=== PATIENT | male | born 1955 | race Hispanic/Latino ===

== ENCOUNTER 2017-08-15 04:19 | Emergency (ER) | payer OTHER, SELFPAY ==
[2017-08-15] MEDS ORDERED: CLOPIDOGREL 75 MG TABLET ONE (04:40)
[2017-08-15] MEDS ORDERED: HEPARIN/D5W 25,000 UNIT/500 ML BAG IV ONE (04:40)
[2017-08-15] MEDS ORDERED: HEPARIN 5000 UNIT/ML 1 ML VIAL ONE (04:40)
[2017-08-15 04:48] LABS: Absolute Monocytes 0.5 K/uL (0.1-1.3); Absolute Neutrophil 3.5 K/uL (1.8-8.0); Basophils % 0.7 % (0-1.3); Eosinophils % 2.7 % (0-4.4); Hematocrit 40.6 % (39.6-49.0); Lymphocytes % 40.9 % (15.3-44.8); MCH 31.4 pg (27.0-35.0); MCV 95.4 fL (80-100); MPV 9.7 fL (7.6-11.3); Monocytes % 6.6 % (3.3-12.3); RBC Red Blood Cell Count 4.26 M/uL (4.33-5.43)
[2017-08-15] MEDS ORDERED: TENECTEPLASE 50 MG/10 ML VIAL IV ONE (04:50)
[2017-08-15 04:56] LABS: Protime INR 0.93
[2017-08-15] MEDS ORDERED: MORPHINE 4 MG/ML SYR ONE (04:58)
--- NOTE | 2017-08-15 04:58 | EDPHYS ---
Physician Documentation [facility] Name: Hawk Penny Age: 62 yrs Sex: Male : 1955 Arrival Date: 08/15/2017 Time: 04:20 Bed 4 Private MD: ED Physician Joe Martinez HPI: 08/15 04:35 This 62 yrs old Male presents to ER via EMS with complaints of Chest Pain. pkl 04:35 The patient or guardian reports chest pain that is located primarily in the substernal pkl area. Onset: just prior to arrival, 5 hour(s) ago. The pain does not radiate. Associated signs and symptoms: Pertinent positives: diaphoresis. The chest pain is described as a pressure. Historical: - Allergies: 04:28 No Known Allergies; fc - Home Meds: 04:28 None [Active]; fc - PMHx: 04:28 None; fc - PSHx: 04:28 None; fc - Immunization history:: Last tetanus immunization: unknown. - Social history:: Smoking status: Patient/guardian denies using tobacco. ROS: 04:35 Eyes: Negative for injury, pain, redness, and discharge, ENT: Negative for injury, pkl pain, and discharge, Neck: Negative for injury, pain, and swelling. 04:35 Cardiovascular: Positive for chest pain. 04:35 Respiratory: Negative for cough, shortness of breath. 04:35 Abdomen/GI: Negative for abdominal pain, nausea, vomiting, and diarrhea. 04:35 Back: Negative for acute changes. 04:35 : Negative for urinary symptoms. 04:35 MS/extremity: Negative for acute changes. 04:35 Skin: Positive for diaphoresis. 04:35 Neuro: Negative for altered mental status. Exam: 04:35 Head/Face: Normocephalic, atraumatic. Eyes: Pupils equal round and reactive to light, pkl extra-ocular motions intact. Lids and lashes normal. Conjunctiva and sclera are non-icteric and not injected. Cornea within normal limits. Periorbital areas with no swelling, redness, or edema. ENT: Nares patent. No nasal discharge, no septal abnormalities noted. Tympanic membranes are normal and external auditory canals are clear. Oropharynx with no redness, swelling, or masses, exudates, or evidence of obstruction, uvula midline. Mucous membranes moist. Neck: Trachea midline, no thyromegaly or masses palpated, and no cervical lymphadenopathy. Supple, full range of motion without nuchal rigidity, or vertebral point tenderness. No Meningismus. Chest/axilla: Normal chest wall appearance and motion. Nontender with no deformity. No lesions are appreciated. Cardiovascular: Regular rate and rhythm with a normal S1 and S2. No gallops, murmurs, or rubs. Normal PMI, no JVD. No pulse deficits. Respiratory: Lungs have equal breath sounds bilaterally, clear to auscultation and percussion. No rales, rhonchi or wheezes noted. No increased work of breathing, no retractions or nasal flaring. Abdomen/GI: Soft, non-tender, with normal bowel sounds. No distension or tympany. No guarding or rebound. No evidence of tenderness throughout. Back: No spinal tenderness. No costovertebral tenderness. Full range of motion. Skin: Warm, dry with normal turgor. Normal color with no rashes, no lesions, and no evidence of cellulitis. MS/ Extremity: Pulses equal, no cyanosis. Neurovascular intact. Full, normal range of motion. Neuro: Awake and alert, GCS 15, oriented to person, place, time, and situation. Cranial nerves II-XII grossly intact. Motor strength 5/5 in all extremities. Sensory grossly intact. Cerebellar exam normal. Normal gait. Vital Signs: 04:13 BP 148 / 108; Pulse 95; Resp 18; Temp 97.6(TE); Pulse Ox 100% on R/A; Weight 97.52 kg fc (R); Height 5 ft. 7 in. (170.18 cm) (R); Pain 2/10; 04:30 BP 163 / 108 LA Sitting (auto/reg); Pulse 74; Resp 20 S; Pulse Ox 100% on 2 lpm NC; bs1 04:55 BP 141 / 109 LA Supine (auto/reg); Pulse 75 LA; Resp 13 S; Temp 97.8(T); Pulse Ox 96% bs1 on 2 lpm NC; 05:06 BP 145 / 102; Pulse 74; Resp 20; Pulse Ox 94% on 2 lpm NC; Pain 5/10; fc 04:13 Body Mass Index 33.67 (97.52 kg, 170.18 cm) MDM: 04:29 Patient medically screened. pkl 04:52 Data reviewed: vital signs, nurses notes, lab test result(s), EKG, radiologic studies, pkl plain films. 04:52 ED course: Talked to Dr. Gaona ( Wool Hat Sanding Machine Operator at [facility] ). To initiate TNK and pkl Transfer to Cath. Lab at [facility]. 08/15 04:30 Order name: Basic Metabolic Panel; Complete Time: 06: 08/15 04:30 Order name: BNP; Complete Time: 06: 08/15 04:30 Order name: CBC with Diff; Complete Time: 04:59 08/15 04:30 Order name: Ckmb; Complete Time: 06: 08/15 04:30 Order name: CPK; Complete Time: 06: 08/15 04:30 Order name: LFT's; Complete Time: 06: 08/15 04:30 Order name: Magnesium; Complete Time: 06: 08/15 04:30 Order name: PT-INR; Complete Time: 04:59 08/15 04:30 Order name: Ptt, Activated; Complete Time: 04:59 08/15 04:30 Order name: Troponin (emerg Dept Use Only); Complete Time: 06: 08/15 04:30 Order name: XRAY Chest (1 view) 08/15 04:30 Order name: EKG; Complete Time: 04:30 08/15 04:30 Order name: Cardiac monitoring; Complete Time: 04:31 08/15 04:30 Order name: EKG - Nurse/Tech; Complete Time: 04:32 08/15 04:30 Order name: IV Saline Lock; Complete Time: 04: 08/15 04:30 Order name: Labs collected and sent; Complete Time: 04:41 08/15 04:30 Order name: O2 Per Protocol; Complete Time: 04: 08/15 04:30 Order name: O2 Sat Monitoring; Complete Time: 04: 08/15 05:42 Order name: EKG - Nurse/Tech; Complete Time: 05:42 08/15 05:42 Order name: EKG - Nurse/Tech; Complete Time: 05:42 08/15 05:42 Order name: EKG; Complete Time: 05:42 08/15 05:42 Order name: EKG; Complete Time: 05:42 Administered Medications: 04:41 Drug: NS 0.9% 1000 ml Route: IV; Rate: 125 ml/hr; Site: right antecubital; ak1 05:25 Follow up: IV Status: Infusion continued upon transfer bs1 04:41 Drug: PlaVIX 300 mg Route: PO; ak1 05:24 Follow up: Response: No adverse reaction bs1 04:47 Drug: Heparin ([place] Drip) 12 units/kg/hr - (HEParin 33491 units, D5W 500 ml) bs1 {Co-Signature: ricardo (Lakeisha Campuzano RN).} Route: IV; Rate: calculated rate; Site: left forearm; 05:25 Follow up: IV Status: Infusion continued upon transfer bs1 04:47 Drug: Heparin ([place]-Bolus No thrombolytic) - HEParin 60 units/kg {Co-Signature: ricardo bs1 (Lakeisha Campuzano RN).} Route: IVP; Site: left forearm; 05:24 Follow up: Response: No adverse reaction bs1 04:55 Drug: morphine 4 mg Route: IVP; Site: right antecubital; bb 05:24 Follow up: Response: No adverse reaction bs1 05:01 Drug: Tenecteplase 50 mg {Co-Signature: ricardo (Lakeisha Campuzano RN).} Route: IV; Rate: bs1 calculated rate; Site: right antecubital; 05:23 Follow up: IV Status: Infusion continued upon transfer bs1 05:25 Follow up: IV Status: Completed infusion bs1 05:15 CANCELLED (Other Intervention Used): Tenecteplase 45 mg IV at 50 calculated rate once bb Disposition: 04:52 Critical Care:. pkl Disposition: 08/15/17 04:58 Transfer ordered to [facility]. Diagnosis is Acute M.I. ( STEMI ). - Reason for transfer: Higher level of care. - Accepting physician is Dr. Gaona. - Condition is Stable. - Problem is new. - Symptoms have improved. Signatures: Dispatcher [employer] EDJoe Taylor MD MD pkLakeisha Elaine RN RN fc Ballard, Brenda, RN RN bb Gabby Kemp RN RN ak1 Zena Meléndez, RN RN bs1 Lakeisha Campuzano RN fc Corrections: (The following items were deleted from the chart) 05:15 05:14 Tenecteplase 45 mg IV at 50 calculated rate once ordered. slade june 05:46 04:58 08/15/2017 04:58 Transfer ordered to [facility]. Diagnosis is bs1 Acute M.I. ( STEMI ). Reason for transfer: Higher level of care. Accepting physician is Dr. Gaona. Condition is Stable. Problem is new. Symptoms have improved. pkl
--- NOTE | 2017-08-15 04:58 | ER ---
Nurse's Notes [facility] Name: Hawk Penny Age: 62 yrs Sex: Male : 1955 Arrival Date: 08/15/2017 Time: 04:20 Bed 4 Private MD: Diagnosis: Acute M.I. ( STEMI ) Presentation: 08/15 04:13 Presenting complaint: EMS states: that pt has been having chest pain since 2300 last night. Pt is also pale, diaphoretic and short of breath. 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 Transition of care: patient was not received from another setting of care. Onset of symptoms was August 14, 2017 at 23:00. Initial Sepsis Screen: Does the patient meet any 2 criteria? HR > 90 bpm. No. Patient's initial sepsis screen is negative. Does the patient have a suspected source of infection? No. Patient's initial sepsis screen is negative. Care prior to arrival: Medication(s) given: ASA, 81 mg, x 1, zofran 4 mg, Fentanyl 100 mcg ivp IV initiated. 18 GA, in the right antecubital area. 04:13 Method Of Arrival: EMS: [facility] 04:13 Acuity: KIP 2 Triage Assessment: 04:43 General: Appears in no apparent distress. Behavior is calm, cooperative. Pain: ak1 Complains of pain in chest. EENT: No signs and/or symptoms were reported regarding the EENT system. Neuro: Level of Consciousness is awake, alert, obeys commands. Historical: - Allergies: 04:28 No Known Allergies; fc - Home Meds: 04:28 None [Active]; fc - PMHx: 04:28 None; fc - PSHx: 04:28 None; fc - Immunization history:: Last tetanus immunization: unknown. - Social history:: Smoking status: Patient/guardian denies using tobacco. Screenin:13 Abuse screen: Denies threats or abuse. Nutritional screening: No deficits noted. Tuberculosis screening: No symptoms or risk factors identified. Fall Risk None identified. Assessment: 04:25 General: Appears uncomfortable, Behavior is calm, cooperative, appropriate for age. bs1 Pain: Complains of pain in chest Pain radiates to left side of chest, underneath breast area Pain began at 2300 last night 5-20-18. Neuro: Level of Consciousness is awake, alert, obeys commands, Oriented to person, place, time, situation, Appropriate for age Checker And Packer are equal bilaterally Moves all extremities. Gait is steady, Speech is normal, Facial symmetry appears normal, Pupils are PERRLA. Neuro: Denies blurred vision difficulty swallowing, numbness. Cardiovascular: Reports chest pain, shortness of breath, reports having chest pain that started about 4 hours ago, states he does not have pain at this time. Heart tones S1 S2 present Capillary refill < 3 seconds Patient's skin is warm and dry. Respiratory: Airway is patent Trachea midline Respiratory effort is even, unlabored, Respiratory pattern is regular, symmetrical. GI: No deficits noted. No signs and/or symptoms were reported involving the gastrointestinal system. : No deficits noted. No signs and/or symptoms were reported regarding the genitourinary system. EENT: No deficits noted. No signs and/or symptoms were reported regarding the EENT system. Derm: Skin is intact, Skin is pink, warm \T\ dry. Musculoskeletal: Circulation, motion, and sensation intact. Capillary refill < 3 seconds, Range of motion: intact in all extremities. 04:52 Reassessment: Patient reporting chest pain again, mild SOB. Dr Martinez at bedside. Order bs1 for 4mg Morphine and TNK. 05:00 Reassessment: Morphine given at 0455. TNK given at 0500. bs1 05:10 Reassessment: Patient is alert, oriented x 3, equal unlabored respirations, skin bs1 warm/dry/pink. Patient states that morphine helped ease the pain. Report given to [facility], patient transferred by ground EMS to [facility]. Patient states symptoms have improved. Vital Signs: 04:13 BP 148 / 108; Pulse 95; Resp 18; Temp 97.6(TE); Pulse Ox 100% on R/A; Weight 97.52 kg fc (R); Height 5 ft. 7 in. (170.18 cm) (R); Pain 05/07; 04:30 BP 163 / 108 LA Sitting (auto/reg); Pulse 74; Resp 20 S; Pulse Ox 100% on 2 lpm NC; bs1 04:55 BP 141 / 109 LA Supine (auto/reg); Pulse 75 LA; Resp 13 S; Temp 97.8(T); Pulse Ox 96% bs1 on 2 lpm NC; 05:06 BP 145 / 102; Pulse 74; Resp 20; Pulse Ox 94% on 2 lpm NC; Pain 5/10; fc 04:13 Body Mass Index 33.67 (97.52 kg, 170.18 cm) ED Course: 04:13 Arm band placed on Patient placed in an exam room, on a stretcher. fc 04:13 Patient has correct armband on for positive identification. Placed in gown. Bed in low fc position. Call light in reach. Side rails up X2. home care physical therapist on. Pulse ox on. NIBP on. 04:13 No provider procedures requiring assistance completed. Maintain EMS IV. Dressing fc intact. Good blood return noted. Site clean \T\ dry. Gauge \T\ site: 18 gauge to right a/c. 04:20 Patient arrived in ED. fc 04:26 Triage completed. fc 04:29 Joe Martinez MD is Attending Physician. pkl 04:43 Inserted saline lock: 18 gauge in left forearm, using aseptic technique. Oxygen ak1 administration via nasal cannula \T\ 2L/min. 04:46 X-ray completed. Portable x-ray completed in exam room. Patient tolerated procedure kw well. 04:51 XRAY Chest (1 view) In Process Unspecified. EDMS 05:06 Zena Meléndez, VON is Primary Nurse. bs1 05:29 Patient transferred, IV remains in place. intact. bs1 Administered Medications: 04:41 Drug: NS 0.9% 1000 ml Route: IV; Rate: 125 ml/hr; Site: right antecubital; ak1 05:25 Follow up: IV Status: Infusion continued upon transfer bs1 04:41 Drug: PlaVIX 300 mg Route: PO; ak1 05:24 Follow up: Response: No adverse reaction bs1 04:47 Drug: Heparin ([place] Drip) 12 units/kg/hr - (HEParin 42018 units, D5W 500 ml) bs1 {Co-Signature: ricardo (Lakeisha Campuzano RN).} Route: IV; Rate: calculated rate; Site: left forearm; 05:25 Follow up: IV Status: Infusion continued upon transfer bs1 04:47 Drug: Heparin (DC-Bolus No thrombolytic) - HEParin 60 units/kg {Co-Signature: bs1 (Lakeisha Campuzano RN).} Route: IVP; Site: left forearm; 05:24 Follow up: Response: No adverse reaction bs1 04:55 Drug: morphine 4 mg Route: IVP; Site: right antecubital; bb 05:24 Follow up: Response: No adverse reaction bs1 05:01 Drug: Tenecteplase 50 mg {Co-Signature: fc (Lakeisha Campuzano RN).} Route: IV; Rate: bs1 calculated rate; Site: right antecubital; 05:23 Follow up: IV Status: Infusion continued upon transfer bs1 05:25 Follow up: IV Status: Completed infusion bs1 05:15 CANCELLED (Other Intervention Used): Tenecteplase 45 mg IV at 50 calculated rate once bb Outcome: 04:58 ER care complete, transfer ordered by . pkmaday 05:15 Transferred by ground EMS to [facility], Transfer form completed. bs1 05:15 Condition: stable 05:15 Instructed on the need for transfer, Demonstrated understanding of instructions. 05:42 Transferred Note: report called to Mayank LONGORIA at the earth science laboratory technician at [facility] in [place]. 05:46 Patient left the ED. bs1 Signatures: Dispatcher [employer] EDMS Joe Martinez MD MD pkl Chretien, Felicia, RN RN fc Hina Donovan RN RN Leanne Mathew Amber RN RN ak1 Zena Meléndez RN RN bs1 Lakeisha Campuzano RN Corrections: (The following items were deleted from the chart) 05:09 04:56 Reassessment: Patient denies chest pain at this time. Denies any SOB, numbness or bs1 tingling. Heparin started at 20 cc/hr, patient tolerating well. bs1 05:11 04:25 Pain: Complains of pain in chest Pain radiates to left side of chest, underneath bs1 breast area Pain began 4 hours ago. bs1 05:12 04:52 Reassessment: Patient reporting chest pain again, mild SOB. bs1 bs1 05:29 04:52 Reassessment: Patient reporting chest pain again, mild SOB. Dr Martinez at bedside. bs1bs1 05:46 04:55 BP 141 / 109 Supine Auto L Arm Regular; Pulse 75bpm; Left ArmResp 13bpm; bs1 Spontaneous; Pulse Ox 96% 2 lpm Nasal Cannula; bs1
[2017-08-15 05:01] LABS: Potassium 3.5 mEq/L (3.6-5.0)
[2017-08-15 05:08] LABS: Albumin 3.8 g/dL (3.2-5.5); Bilirubin Direct 0.1 mg/dL (0-0.2); Bilirubin Total 0.4 mg/dL (0.3-1.2); Magnesium 1.9 mg/dL (1.8-2.5); Protein, Total 7.4 g/dL (6.0-8.3)
[2017-08-15 05:11] LABS: CKMB Creatine Kinase MB 5.1 ng/ml (0.3-4.0)
--- NOTE | 2017-08-15 07:57 | EKG ---
Test Date: 2017-08-15 Test Time: 05:02:37 Triage Assistant: NORMA MEASUREMENT RESULTS: Intervals: Rate: 70 AR: 134 QRSD: 92 QT: 410 QTc: 442 [place]: P: 16 AR: 134 QRS: -32 T: 4 INTERPRETIVE STATEMENTS: Normal sinus rhythm Left axis deviation ST elevation, consider anterolateral injury or acute infarct ACUTE [place] / STEMI Abnormal ECG Compared to ECG 08/15/2017 04:33:35 No significant changes Electronically Signed On 08-15-17 07:56:58 CDT by Hollis Kern
--- NOTE | 2017-08-15 07:57 | EKG ---
Test Date: 2017-08-15 Test Time: 04:18:58 Farmworker Animal: NORMA MEASUREMENT RESULTS: Intervals: Rate: 71 DC: 130 QRSD: 84 QT: 400 QTc: 434 [place]: P: 20 DC: 130 QRS: -27 T: 2 INTERPRETIVE STATEMENTS: Normal sinus rhythm ST elevation, consider lateral injury or acute infarct ACUTE [place] / STEMI Abnormal ECG No previous ECG available for comparison Electronically Signed On 08-15-17 07:57:19 CDT by Hollis Kern
--- NOTE | 2017-08-15 07:57 | EKG ---
Test Date: 2017-08-15 Test Time: 04:33:35 Memorial Counselor: NORMA MEASUREMENT RESULTS: Intervals: Rate: 66 LA: 132 QRSD: 86 QT: 404 QTc: 423 [place]: P: 12 LA: 132 QRS: -38 T: 0 INTERPRETIVE STATEMENTS: Normal sinus rhythm Left axis deviation ST elevation, consider lateral injury or acute infarct ACUTE [place] / STEMI Abnormal ECG Compared to ECG 08/15/2017 04:18:58 Left-axis deviation now present ST (T wave) deviation still present Myocardial infarct finding still present Electronically Signed On 08-15-17 07:57:15 CDT by Hollis Kern
--- NOTE | 2017-08-17 11:09 | RAD REPORT ---
EXAM DESCRIPTION: RAD - Chest Single View - 08/15/2017 4:51 am CLINICAL HISTORY: Chest pain. COMPARISON: None. FINDINGS: Portable technique limits examination quality. The lungs are grossly clear. The heart is normal in size. No displaced fractures. IMPRESSION: No acute intrathoracic process suspected.
== END 2017-08-15 05:46 | disposition short-term general hospital (02) ==
LOC: ER 04:19
DX: I21.3 ST elevation (STEMI) myocardial infarction of unspecified site (principal)
CPT/HCPCS: 36415; 71045; 80048; 80076; 82550; 82553; 83735; 83880; 84484; 85025; 85610; 85730; 92977; 93005; 99285; J1644; J3101

== ENCOUNTER 2021-04-26 14:12 | Observation (INO) | payer SELFPAY ==
--- OUTSIDE RECORDS SUMMARY | 2021-04-26 14:16 | XMS REPORT | Continuity of Care Document ---
:1955 Author Organization [facility] t Address [address] [place] [address] Care Team Providers Name Role Phone NAN BOWIE Attending Clinician Unavailable Triston BOWIE Admitting Clinician Unavailable Problems This patient has no known problems. Allergies, Adverse Reactions, Alerts This patient has no known allergies or adverse reactions. Medications This patient has no known medications. Procedures This patient has no known procedures. Results Test Description Test Time Test Comments Results Result Comments Source MAGNESIUM 2017-08-18 06:38:00 Test Item Value Reference Range Interpretation Comme nts MAGNESIUM (BEAKER) (test code = 627) 2.4 mg/dL 1.6-2.6 BASIC METABOLIC [id number] 06:38:00 Test Item Value Reference Range Interpretation Comments SODIUM (BEAKER) 138 meq/L 136-145 (test code = 381) POTASSIUM (BEAKER) 4.8 meq/L 3.5-5.1 (test code = 379) CHLORIDE (BEAKER) 105 meq/L 98-107 (test code = 382) CO2 (BEAKER) (test 26 meq/L 22-29 code = 355) BLOOD UREA NITROGEN 28 mg/dL 7-21 H (BEAKER) (test code = 354) CREATININE (BEAKER) 1.49 mg/dL 0.57-1.25 H (test code = 358) GLUCOSE RANDOM 122 mg/dL 70-105 H (BEAKER) (test code = 652) CALCIUM (BEAKER) 9.5 mg/dL 8.4-10.2 (test code = 697) EGFR (BEAKER) (test 48 mL/min/1.73 ESTIMA KATIE GFR IS code = 1092) sq m NOT ACCURATE CREATININE CLEARANCE IN PREDICTING GLOMERULAR FILTRATION RATE . ESTIMATED GFR I S NOT APPLICABLE FOR DIALYSIS QUIN TS. CBC W/PLT COUNT & AUTO [id number] 06:20:00 Test Item Value Reference Range Interpretation Comments WHITE BLOOD CELL COUNT (BEAKER) 8.9 K/ L 3.5-10.5 (test code = 775) RED BLOOD CELL COUNT (BEAKER) 4.16 M/ L 4.63-6.08 L (test code = 761) HEMOGLOBIN (BEAKER) (test code = 12.9 GM/DL 13.7-17.5 L 410) HEMATOCRIT (BEAKER) (test code = 40.0 % 40.1-51.0 L 411) MEAN CORPUSCULAR VOLUME (BEAKER) 96.2 fL 79.0-92.2 H (test code = 753) MEAN CORPUSCULAR HEMOGLOBIN 31.0 pg 25.7-32.2 (BEAKER) (test code = 751) MEAN CORPUSCULAR HEMOGLOBIN CONC 32.3 GM/DL 32.3-36.5 (BEAKER) (test code = 752) RED CELL DISTRIBUTION WIDTH 14.1 % 11.6-14.4 (BEAKER) (test code = 412) PLATELET COUNT (BEAKER) (test 146 K/CU MM 150-450 L code = 756) MEAN PLATELET VOLUME (BEAKER) 11.8 fL 9.4-12.4 (test code = 754) NUCLEATED RED BLOOD CELLS 0 /100 WBC 0-0 (BEAKER) (test code = 413) NEUTROPHILS RELATIVE PERCENT 70 % (BEAKER) (test code = 429) LYMPHOCYTES RELATIVE PERCENT 17 % (BEAKER) (test code = 430) MONOCYTES RELATIVE PERCENT 11 % (BEAKER) (test code = 431) EOSINOPHILS RELATIVE PERCENT 2 % (BEAKER) (test code = 432) BASOPHILS RELATIVE PERCENT 0 % (BEAKER) (test code = 437) NEUTROPHILS ABSOLUTE COUNT 6.21 K/ L 1.78-5.38 H (BEAKER) (test code = 670) LYMPHOCYTES ABSOLUTE COUNT 1.48 K/ L 1.32-3.57 (BEAKER) (test code = 414) MONOCYTES ABSOLUTE COUNT (BEAKER) 0.98 K/ L 0.30-0.82 H (test code = 415) EOSINOPHILS ABSOLUTE COUNT 0.14 K/ L 0.04-0.54 (BEAKER) (test code = 416) BASOPHILS ABSOLUTE COUNT (BEAKER) 0.04 K/ L 0.01-0.08 (test code = 417) IMMATURE GRANULOCYTES-RELATIVE 1 % 0-1 PERCENT (BEAKER) (test code = 2801) [id number] 05:54:00 Test Item Value Reference Range Interpretation Comments MAGNESIUM (BEAKER) (test code = 2.2 mg/dL 1.6-2.6 627) BASIC METABOLIC [id number] 05:54:00 Test Item Value Reference Range Interpretation Comments SODIUM (BEAKER) 136 meq/L 136-145 (test code = 381) POTASSIUM (BEAKER) 4.5 meq/L 3.5-5.1 (test code = 379) CHLORIDE (BEAKER) 100 meq/L 98-107 (test code = 382) CO2 (BEAKER) (test 27 meq/L 22-29 code = 355) BLOOD UREA NITROGEN 22 mg/dL 7-21 H (BEAKER) (test code = 354) CREATININE (BEAKER) 1.33 mg/dL 0.57-1.25 H (test code = 358) GLUCOSE RANDOM 123 mg/dL 70-105 H (BEAKER) (test code = 652) CALCIUM (BEAKER) 9.4 mg/dL 8.4-10.2 (test code = 697) EGFR (BEAKER) (test 55 mL/min/1.73 ESTIMA KATIE GFR IS code = 1092) sq m NOT ACCURATE CREATININE CLEARANCE IN PREDICTING GLOMERULAR FILTRATION RATE . ESTIMATED GFR I S NOT APPLICABLE FOR DIALYSIS PATIEN TS. CBC W/PLT COUNT & AUTO [id number] 05:26:00 Test Item Value Reference Range Interpretation Comments WHITE BLOOD CELL COUNT (BEAKER) 11.2 K/ L 3.5-10.5 H (test code = 775) RED BLOOD CELL COUNT (BEAKER) 4.33 M/ L 4.63-6.08 L (test code = 761) HEMOGLOBIN (BEAKER) (test code = 13.6 GM/DL 13.7-17.5 L 410) HEMATOCRIT (BEAKER) (test code = 41.9 % 40.1-51.0 411) MEAN CORPUSCULAR VOLUME (BEAKER) 96.8 fL 79.0-92.2 H (test code = 753) MEAN CORPUSCULAR HEMOGLOBIN 31.4 pg 25.7-32.2 (BEAKER) (test code = 751) MEAN CORPUSCULAR HEMOGLOBIN CONC 32.5 GM/DL 32.3-36.5 (BEAKER) (test code = 752) RED CELL DISTRIBUTION WIDTH 14.1 % 11.6-14.4 (BEAKER) (test code = 412) PLATELET COUNT (BEAKER) (test 150 K/CU MM 150-450 code = 756) MEAN PLATELET VOLUME (BEAKER) 11.7 fL 9.4-12.4 (test code = 754) NUCLEATED RED BLOOD CELLS 0 /100 WBC 0-0 (BEAKER) (test code = 413) NEUTROPHILS RELATIVE PERCENT 75 % (BEAKER) (test code = 429) LYMPHOCYTES RELATIVE PERCENT 14 % (BEAKER) (test code = 430) MONOCYTES RELATIVE PERCENT 10 % (BEAKER) (test code = 431) EOSINOPHILS RELATIVE PERCENT 0 % (BEAKER) (test code = 432) BASOPHILS RELATIVE PERCENT 0 % (BEAKER) (test code = 437) NEUTROPHILS ABSOLUTE COUNT 8.34 K/ L 1.78-5.38 H (BEAKER) (test code = 670) LYMPHOCYTES ABSOLUTE COUNT 1.59 K/ L 1.32-3.57 (BEAKER) (test code = 414) MONOCYTES ABSOLUTE COUNT (BEAKER) 1.12 K/ L 0.30-0.82 H (test code = 415) EOSINOPHILS ABSOLUTE COUNT 0.05 K/ L 0.04-0.54 (BEAKER) (test code = 416) BASOPHILS ABSOLUTE COUNT (BEAKER) 0.03 K/ L 0.01-0.08 (test code = 417) IMMATURE GRANULOCYTES-RELATIVE 1 % 0-1 PERCENT (BEAKER) (test code = 2801) HEMOGLOBIN [id number] 10:45:00 Test Item Value Reference Range Interpretation Comments HEMOGLOBIN A1C (BEAKER) (test code = 5.6 % 4.3-6.1 368) CBC W/PLT COUNT & AUTO [id number] 06:49:00 Test Item Value Reference Range Interpretation Comments WHITE BLOOD CELL COUNT (BEAKER) 12.6 K/ L 3.5-10.5 H (test code = 775) RED BLOOD CELL COUNT (BEAKER) 4.28 M/ L 4.63-6.08 L (test code = 761) HEMOGLOBIN (BEAKER) (test code = 13.6 GM/DL 13.7-17.5 L 410) HEMATOCRIT (BEAKER) (test code = 40.5 % 40.1-51.0 411) MEAN CORPUSCULAR VOLUME (BEAKER) 94.6 fL 79.0-92.2 H (test code = 753) MEAN CORPUSCULAR HEMOGLOBIN 31.8 pg 25.7-32.2 (BEAKER) (test code = 751) MEAN CORPUSCULAR HEMOGLOBIN CONC 33.6 GM/DL 32.3-36.5 (BEAKER) (test code = 752) RED CELL DISTRIBUTION WIDTH 14.0 % 11.6-14.4 (BEAKER) (test code = 412) PLATELET COUNT (BEAKER) (test 147 K/CU MM 150-450 L code = 756) MEAN PLATELET VOLUME (BEAKER) 11.1 fL 9.4-12.4 (test code = 754) NUCLEATED RED BLOOD CELLS 0 /100 WBC 0-0 (BEAKER) (test code = 413) NEUTROPHILS RELATIVE PERCENT 84 % (BEAKER) (test code = 429) LYMPHOCYTES RELATIVE PERCENT 8 % (BEAKER) (test code = 430) MONOCYTES RELATIVE PERCENT 7 % (BEAKER) (test code = 431) EOSINOPHILS RELATIVE PERCENT 0 % (BEAKER) (test code = 432) BASOPHILS RELATIVE PERCENT 0 % (BEAKER) (test code = 437) NEUTROPHILS ABSOLUTE COUNT 10.55 K/ L 1.78-5.38 H (BEAKER) (test code = 670) LYMPHOCYTES ABSOLUTE COUNT 0.99 K/ L 1.32-3.57 L (BEAKER) (test code = 414) MONOCYTES ABSOLUTE COUNT (BEAKER) 0.93 K/ L 0.30-0.82 H (test code = 415) EOSINOPHILS ABSOLUTE COUNT 0.02 K/ L 0.04-0.54 L (BEAKER) (test code = 416) BASOPHILS ABSOLUTE COUNT (BEAKER) 0.02 K/ L 0.01-0.08 (test code = 417) IMMATURE GRANULOCYTES-RELATIVE 1 % 0-1 PERCENT (BEAKER) (test code = 2806) [id number] 06:40:00 Test Item Value Reference Range Interpretation Comments MAGNESIUM (BEAKER) 2.2 mg/dL 1.6-2.6 Specimen slightly (test code = 627) hemolyzed BASIC METABOLIC [id number] 06:40:00 Test Item Value Reference Range Interpretation Comments SODIUM (BEAKER) 136 meq/L 136-145 (test code = 381) POTASSIUM (BEAKER) 3.7 meq/L 3.5-5.1 Specimen slightly (test code = 379) hemolyzed CHLORIDE (BEAKER) 102 meq/L 98-107 (test code = 382) CO2 (BEAKER) (test 26 meq/L 22-29 code = 355) BLOOD UREA NITROGEN 19 mg/dL 7-21 (BEAKER) (test code = 354) CREATININE (BEAKER) 1.12 mg/dL 0.57-1.25 Specimen slightly (test code = 358) hemolyzed GLUCOSE RANDOM 142 mg/dL 70-105 H (BEAKER) (test code = 652) CALCIUM (BEAKER) 8.9 mg/dL 8.4-10.2 (test code = 697) EGFR (BEAKER) (test 67 mL/min/1.73 ESTIMA KATIE GFR IS code = 1092) sq m NOT ACCURATE CREATININE CLEARANCE IN PREDICTING GLOMERULAR FILTRATION RATE . ESTIMATED GFR I S NOT APPLICABLE FOR DIALYSIS PATIEN TS. TROPONIN [id number] 09:59:00 Test Item Value Reference Range Interpretation Comments TROPONIN I (BEAKER) (test code = 397) > ng/mL 0.00-0.03 HH Troponin I (TnI) levels must be interpreted in the context of the presenting symptoms and the clinical findings. Elevated TnI levels indicate myocardial damage, but are not specific for ischemic heart disease. Elevated TnI levels are seen in patients with other cardiac conditions (including myocarditis and congestive heart failure), and slight TnI elevations occur in patients with other conditions, including sepsis, renal failure, acidosis, acute neurological disease, and persistent tachyarrhythmia.TSH/FREE T4 IF [id number] 09:19:00 Test Item Value Reference Range Interpretation Comments THYROID STIMULATING HORMONE 4.36 uIU/mL 0.35-4.94 (BEAKER) (test code = 772) B-TYPE NATRIURETIC FACTOR (BNP)2017-08-15 09:02:00 Test Item Value Reference Range Interpretation Comments B-TYPE NATRIURETIC PEPTIDE (BEAKER) 62 pg/mL 0-100 (test code = 700) [id number] 09:01:00 Test Item Value Reference Range Interpretation Comments PARTIAL THROMBOPLASTIN TIME > seconds 22.5-36.0 HH (BEAKER) (test code = 760) RAD, CHEST, 1 VIEW, NON [id number] 09:01:00Reason for exam:->chest painShould this be performed at the bedside?->YesFINAL REPORT Chest one view INDICATION: Chest pain COMPARISON: None available IMPRESSION: The cardiac silhouette is enlarged. There is pulmonary vascular congestion with diffuse interstitial and ground glass and early airspace opacities suggestive of pulmonary edema. Superimposed pneumonitis cannot be excluded, however. Trace pleural effusions may be present. The aorta is mildly ectatic/tortuous. No acute osseous abnormality or pneumothorax is seen. Signed: Ame Siddiqui MDReport Verified Date/Time: 08/15/2017 09:01:19 Reading Location: [facility] Radiology ReadingRoom HEPATIC FUNCTION [id number] 08:59:00 Test Item Value Reference Range Interpretation Comments TOTAL PROTEIN (BEAKER) (test code = 6.6 gm/dL 6.0-8.3 770) ALBUMIN (BEAKER) (test code = 1145) 3.6 g/dL 3.5-5.0 BILIRUBIN TOTAL (BEAKER) (test code 0.6 mg/dL 0.2-1.2 = 377) BILIRUBIN DIRECT (BEAKER) (test 0.3 mg/dL 0.1-0.5 code = 706) ALKALINE PHOSPHATASE (BEAKER) (test 91 U/L 40-150 code = 346) AST (SGOT) (BEAKER) (test code = 775 U/L 5-34 H 353) ALT (SGPT) (BEAKER) (test code = 149 U/L 6-55 H 347) [id number] 08:59:00 Test Item Value Reference Range Interpretation Comments PHOSPHORUS (BEAKER) (test code = 2.3 mg/dL 2.3-4.7 604) BASIC METABOLIC [id number] 08:59:00 Test Item Value Reference Range Interpretation Comments SODIUM (BEAKER) 137 meq/L 136-145 (test code = 381) POTASSIUM (BEAKER) 4.0 meq/L 3.5-5.1 (test code = 379) CHLORIDE (BEAKER) 105 meq/L 98-107 (test code = 382) CO2 (BEAKER) (test 25 meq/L 22-29 code = 355) BLOOD UREA NITROGEN 18 mg/dL 7-21 (BEAKER) (test code = 354) CREATININE (BEAKER) 1.22 mg/dL 0.57-1.25 (test code = 358) GLUCOSE RANDOM 140 mg/dL 70-105 H (BEAKER) (test code = 652) CALCIUM (BEAKER) 8.5 mg/dL 8.4-10.2 (test code = 697) EGFR (BEAKER) (test 60 mL/min/1.73 ESTIMA KATIE GFR IS code = 1092) sq m NOT ACCURATE CREATININE CLEARANCE IN PREDICTING GLOMERULAR FILTRATION RATE . ESTIMATED GFR I S NOT APPLICABLE FOR DIALYSIS PATIEN TS. LIPID [id number] 08:59:00 Test Item Value Reference Range Interpretation Comments TRIGLYCERIDES (BEAKER) (test code = 46 mg/dL 540) CHOLESTEROL (BEAKER) (test code = 149 mg/dL 631) HDL CHOLESTEROL (BEAKER) (test code 45 mg/dL = 976) LDL CHOLESTEROL CALCULATED (BEAKER) 95 mg/dL (test code = 633) Triglyceride Reference Range: Low Risk <150 Borderline 150-199 High Risk 200-499 Very High Risk >=500Cholesterol Reference Range: Low Risk <200 Borderline 200-239 High Risk >240HDL Cholesterol Reference Range: Low Risk >=60 High Risk <40LDL Cholesterol Reference Range: Optimal <100 Near Optimal 100-129 Borderline 130-159 High 160-189 Very High >=190CBC W/PLT COUNT & AUTO [id number] 08:46:00 Test Item Value Reference Range Interpretation Comments WHITE BLOOD CELL COUNT (BEAKER) 11.5 K/ L 3.5-10.5 H (test code = 775) RED BLOOD CELL COUNT (BEAKER) 4.31 M/ L 4.63-6.08 L (test code = 761) HEMOGLOBIN (BEAKER) (test code = 13.4 GM/DL 13.7-17.5 L 410) HEMATOCRIT (BEAKER) (test code = 42.1 % 40.1-51.0 411) MEAN CORPUSCULAR VOLUME (BEAKER) 97.7 fL 79.0-92.2 H (test code = 753) MEAN CORPUSCULAR HEMOGLOBIN 31.1 pg 25.7-32.2 (BEAKER) (test code = 751) MEAN CORPUSCULAR HEMOGLOBIN CONC 31.8 GM/DL 32.3-36.5 L (BEAKER) (test code = 752) RED CELL DISTRIBUTION WIDTH 13.7 % 11.6-14.4 (BEAKER) (test code = 412) PLATELET COUNT (BEAKER) (test 151 K/CU MM 150-450 code = 756) MEAN PLATELET VOLUME (BEAKER) 10.7 fL 9.4-12.4 (test code = 754) NUCLEATED RED BLOOD CELLS 0 /100 WBC 0-0 (BEAKER) (test code = 413) NEUTROPHILS RELATIVE PERCENT 85 % (BEAKER) (test code = 429) LYMPHOCYTES RELATIVE PERCENT 9 % (BEAKER) (test code = 430) MONOCYTES RELATIVE PERCENT 5 % (BEAKER) (test code = 431) EOSINOPHILS RELATIVE PERCENT 0 % (BEAKER) (test code = 432) BASOPHILS RELATIVE PERCENT 0 % (BEAKER) (test code = 437) NEUTROPHILS ABSOLUTE COUNT 9.81 K/ L 1.78-5.38 H (BEAKER) (test code = 670) LYMPHOCYTES ABSOLUTE COUNT 1.00 K/ L 1.32-3.57 L (BEAKER) (test code = 414) MONOCYTES ABSOLUTE COUNT (BEAKER) 0.59 K/ L 0.30-0.82 (test code = 415) EOSINOPHILS ABSOLUTE COUNT 0.02 K/ L 0.04-0.54 L (BEAKER) (test code = 416) BASOPHILS ABSOLUTE COUNT (BEAKER) 0.04 K/ L 0.01-0.08 (test code = 417) IMMATURE GRANULOCYTES-RELATIVE 0 % 0-1 PERCENT (BEAKER) (test code = 2801) PROTHROMBIN [id number] 08:43:00 Test Item Value Reference Range Interpretation Comments PROTIME (BEAKER) (test code = 15.5 seconds 11.7-14.7 H 759) INR (BEAKER) (test code = 370) 1.2 <=5.9 RECOMMENDED COUMADIN/WARFARIN INR THERAPY RANGESSTANDARD DOSE: 2.0 - 3.0 Includes: PROPHYLAXIS forvenous thrombosis, systemic embolization; TREATMENT for venous thrombosis and/or pulmonary embolus.HIGH RISK: Target INR is 2.5-3.5 for patients with mechanical heart valves.[id number] 07:30:00 Test Item Value Reference Range Interpretation Comments ACTIVATED CLOTTING TIME 450 sec TEST ED AT [place] [address] ([facility]) (test code = [place] [address]) [id number] 06:30:00 Test Item Value Reference Range Interpretation Comments ACTIVATED CLOTTING TIME 175 sec TEST ED AT [place] [address] ([facility]) (test code = [place] [address]) [id number]
--- NOTE | 2021-04-26 16:08 | RAD REPORT ---
EXAM DESCRIPTION: CT - Head Brain Wo Cont - 04/26/2021 3:58 pm CLINICAL HISTORY: right leg weakness;Weakness, confusion, altered mental status COMPARISON: Renal Ultrasound-Complete dated 12/31/2020No comparisons TECHNIQUE: Axial 5 mm thick images of the head were obtained without IV contrast. All CT scans are performed using dose optimization technique as appropriate and may include automated exposure control or mA/KV adjustment according to patient size. FINDINGS: No intracranial hemorrhage, mass, edema or shift of mid-line structures. No acute cortical based infarction. No cortical edema or sulcal effacement. Atrophy changes minimal. No significant ch ronic ischemic changes. No abnormal extra-axial fluid collections. Ventricles are normal. Mastoid air cells and visualized portions of the paranasal sinuses are clear. No acute bony findings. IMPRESSION: Negative non-contrast CT head examination for acute finding.
[2021-04-26 16:51] LABS: Urine Blood Negative (Negative); Urine Glucose Negative (Negative); Urine Protein 1+ (Negative); Urine Specific Gravity >=1.030 (1.005-1.030)
[2021-04-26 17:01] LABS: Urine Bacteria <20 /HPF (NONE SEEN); Urine Mucus MOD /HPF (NONE SEEN); Urine RBC NONE SEEN /HPF (NONE SEEN)
[2021-04-26 17:13] LABS: SARS-COV-2 RT PCR POSITIVE (NEGATIVE)
--- NOTE | 2021-04-26 17:20 | RAD REPORT ---
EXAM DESCRIPTION: RAD - Chest Single View - 04/26/2021 4:42 pm CLINICAL HISTORY: mental status change COMPARISON: Portable July 2017 TECHNIQUE: AP portable chest image was obtained 04/26/2021 4:42 pm . FINDINGS: Lung volumes are low. Scattered interstitial and alveolar opacities are present throughout both lung dumont. This is more prominent than prior imaging even when adjusting for shallow inspirat ion. Patient has chronic underlying interstitial lung disease. Bilateral pneumonia is suspected. Pneumonia etiologies include COVID-19 pneumonia. This needs correla tion with testing. Failure and volume overload are not suspected. Heart and vasculature are normal. No measurable pleura l effusion and no pneumothorax. No acute bony abnormality seen. No acute aortic findings suspected. IMPRESSION: Scattered interstitial and alveolar opacities are present scattered on baseline intersti tial lung disease. Bilateral pneumonia is most likely a includes COVID-19 pneumonia etiologies.
[2021-04-26 17:28] LABS: Absolute Lymphocytes (CBC) 1.4 K/uL (0.7-4.9); Hematocrit 37.4 % (39.6-49.0); Lymphocytes % 23.8 % (15.3-44.8); MPV 8.8 fL (7.6-11.3); Protime INR 1.19; RBC Red Blood Cell Count 4.08 M/uL (4.33-5.43)
[2021-04-26 17:42] LABS: Albumin 2.7 g/dL (3.4-5.0); Bilirubin Direct 0.2 mg/dL (0-0.2); Bilirubin Total 0.5 mg/dL (0.2-1.0); Magnesium 2.1 mg/dL (1.8-2.4); Potassium 4.1 mmol/L (3.5-5.1); Protein, Total 8.3 g/dL (6.4-8.2)
[2021-04-26] MEDS ORDERED: ASPIRIN 325 MG TAB ONE (18:01)
--- NOTE | 2021-04-26 18:29 | RAD REPORT ---
EXAM DESCRIPTION: CT - Head angio - 04/26/2021 5:40 pm CLINICAL HISTORY: WEAKNESS TECHNIQUE: During dynamic enhancement using nonionic IV contrast, axial 1 millimeter thick images of the head were obtained. Sagittal and axial reconstruction images were generated using MIP technique and reviewed. All CT scans are performed using dose optimization technique as appropriate and may include automated exposure control or mA/KV adjustment according to patient size. COMPARISON: CT head same date FINDINGS: No vascular malformation identified. There is a 2 millimeter area of fullness at the left side of a small anterior communicating artery. Small aneurysm is possible. This is not relevant to t he acute clinical presentation but can be monitored on follow-up imaging to assure no growth. Major venous sinuses are patent. No stenosis, named branch occlusion, vasculitis or other significant vascular finding identifiable. S mall bilateral posterior communicating arteries are present along with anterior communicating artery is normal anatomic variants. IMPRESSION: No named branch occlusion or acute vascular finding identified. 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 This is not acutely relevant but can be monitored on follow-up imaging for confirmation and growth assessment.
--- NOTE | 2021-04-26 18:32 | RAD REPORT ---
EXAM DESCRIPTION: CT - Neck Angio - 04/26/2021 5:40 pm CLINICAL HISTORY: Weakness TECHNIQUE: During dynamic enhancement using nonionic IV contrast, axial 2 mm thick images of the nec k were obtained. Sagittal and axial reconstruction images were generated using MIP technique and revi ewed. All CT scans are performed using dose optimization technique as appropriate and may include automated exposure control or mA/KV adjustment according to patient size. COMPARISON: CT head same date, CT angio head same date FINDINGS: Limited imaging of the upper lung dumont shows ground-glass opacification and interstitia l thickening. In the current clinical environment, a COVID-19 pneumonia would be a primary considerat ion and needs correlation with testing. No aneurysm or vascular malformation identified. No carotid or vertebral dissection. No aortic arch or great vessel origin abnormality seen. Vertebral artery origins unremarkable as well . No stenosis, vasculitis or other significant carotid artery finding. No focal abnormality of either vertebral artery. Basilar artery is normal. IMPRESSION: Negative CT angio neck examination. Upper lung parenchymal pattern suspicious for COVID-19 pneumonia.
[2021-04-26] MEDS ORDERED: NA CHLORIDE 0.9% 0 ML ONE (18:41)
[2021-04-26] MEDS ORDERED: NA CHLORIDE 0.9% 1,000 ML ONE (18:42)
[2021-04-26] MEDS ORDERED: FOLIC ACID 5 MG/ML VIAL ONE (18:42)
--- NOTE | 2021-04-26 19:27 | EDPHYS ---
Physician Documentation [facility] Name: Hawk Penny Age: 65 yrs Sex: Male : 1955 Arrival Date: 04/26/2021 Time: 14:15 Bed 14 Private MD: ED Physician Ike Aguilar HPI: 04/26 17:12 This 65 yrs old Male presents to ER via Wheelchair with complaints of pm1 Disoriented. 17:12 The patient's problem is reported as weakness, in the right lower extremity. Onset: The pm1 symptoms/episode began/occurred just prior to arrival, at 08:00. Duration: The episode is continuous, improved. The symptoms are alleviated by nothing. The symptoms are aggravated by nothing. Associated signs and symptoms: Pertinent negatives: abdominal pain, headache, numbness, tingling, fever, chest pain, shortness of breath. Severity of symptoms: in the emergency department the symptoms have improved. Patient's baseline: Neuro: alert and fully oriented, Motor: no deficits, Ambulation: walks with assist only, uses cane, Speech: normal. The patient has experienced a previous episode, and the symptoms today are exactly the same, last year. Evaluated in a ER and was discharged home. Patient unable to recall a diagnosis. The patient has not recently seen a physician. Historical: - Allergies: 14:47 No Known Allergies; vg1 - Home Meds: 14:47 None [Active]; vg1 - PMHx: 14:52 Myocardial infarction; vg1 - PSHx: 14:47 None; vg1 - Immunization history:: Client reports having NOT received the Covid vaccine. - Social history:: Smoking status: Patient denies any tobacco usage or history of. ROS: 17:12 Constitutional: Negative for fever, chills, and weight loss, Cardiovascular: Negative pm1 for chest pain, palpitations, and edema, Respiratory: Negative for shortness of breath, cough, wheezing, and pleuritic chest pain, Abdomen/GI: Negative for abdominal pain, nausea, vomiting, diarrhea, and constipation, Back: Negative for injury and pain, MS/Extremity: Negative for injury and deformity, Skin: Negative for injury, rash, and discoloration. 17:12 Neuro: Positive for Weakness and coordination issues with right leg, Negative for headache, numbness, tingling. 17:12 All other systems are negative. Exam: 15:49 Neuro: Exam negative for acute changes, focal neuro deficits, Orientation: is normal, pm1 Mentation: is normal, Cranial nerves: CN II- XII are normal as tested, Cerebellar function: normal finger to nose testing, heel to macias testing is normal, Motor: moves all fours, strength is 5/5 in all extremities, Sensation: is normal, no obvious gross deficits. 15:49 Constitutional: This is a well developed, well nourished patient who is awake, alert, pm1 and in no acute distress. Head/Face: Normocephalic, atraumatic. 15:49 Skin: Warm, dry with normal turgor. Normal color with no rashes, no lesions, and no evidence of cellulitis. MS/ Extremity: Pulses equal, no cyanosis. Neurovascular intact. Full, normal range of motion. 15:49 Cardiovascular: Exam negative for acute changes, Rate: normal, Rhythm: regular, Pulses: no pulse deficits are appreciated. 15:49 Respiratory: Exam negative for acute changes, the patient does not display signs of respiratory distress, Respirations: normal, Breath sounds: are clear throughout. 18:34 Radiologist reports: No acute findings on CT brain and neck angio pm1 Vital Signs: 14:44 BP 132 / 95; Pulse 109; Resp 16; Temp 99.0; Pulse Ox 95% ; Weight 77.11 kg; Height 5 vg1 ft. 7 in. (170.18 cm); Pain 0/10; 16:36 Pulse 108; Resp 19; Pulse Ox 98% on R/A; ap3 18:14 BP 114 / 94; Pulse 90; Pulse Ox 100% on R/A; ap3 14:44 Body Mass Index 26.63 (77.11 kg, 170.18 cm) vg1 MDM: 15:33 Patient medically screened. pm1 17:18 Data reviewed: vital signs. Data interpreted: Pulse oximetry: on room air is 98 %. pm1 Interpretation: normal. 18:12 Counseling: I had a detailed discussion with the patient and/or guardian regarding: lab pm1 results, radiology results, pending CTA results. Discussed covid results and chest x-ray. 20:21 Physician consultation: Akil Rae MD regarding consult, patient's condition, MRI pm1 in the morning. 04/26 15:43 Order name: Basic Metabolic Panel; Complete Time: 17:50 pm1 04/26 15:43 Order name: CBC with Diff; Complete Time: 17:50 pm04/26 15:43 Order name: LFT's; Complete Time: 17:50 pm04/26 15:43 Order name: Magnesium; Complete Time: 17:50 pm04/26 15:43 Order name: NT PRO-BNP; Complete Time: 17:50 pm04/26 15:43 Order name: PT-INR; Complete Time: 17:50 pm04/26 15:43 Order name: Troponin HS; Complete Time: 17:50 pm04/26 15:43 Order name: XRAY Chest (1 view); Complete Time: 17:50 pm04/26 15:43 Order name: CT Head Brain wo Cont; Complete Time: 16:15 pm04/26 15:45 Order name: Urine Microscopic Only; Complete Time: 17:05 pm04/26 15:45 Order name: COVID-19/FLU A+B (Document "Date of Onset" if Symptomatic); Complete Time: pm1 17:50 04/26 16:51 Order name: Urine Dipstick-Ancillary; Complete Time: 16:55 EDMS 04/26 17:12 Order name: CT Head Angio; Complete Time: 18:31 pm04/26 17:16 Order name: CT Neck Angio; Complete Time: 18:34 pm1 04/26 15:43 Order name: EKG; Complete Time: 15:44 pm04/26 15:43 Order name: Cardiac monitoring; Complete Time: 16:36 pm04/26 15:43 Order name: EKG - Nurse/Tech; Complete Time: 16:36 pm04/26 15:43 Order name: IV Saline Lock; Complete Time: 17:09 pm04/26 15:43 Order name: Labs collected and sent; Complete Time: 17:09 pm04/26 15:43 Order name: O2 Per Protocol; Complete Time: 16:36 pm04/26 15:43 Order name: O2 Sat Monitoring; Complete Time: 16:36 pm04/26 15:45 Order name: Urine Dipstick-Ancillary (obtain specimen); Complete Time: 17:09 pm1 Administered Medications: 18:13 Drug: Aspirin 325 mg Route: PO; ap3 18:54 Follow up: Response: No adverse reaction ap3 18:54 Drug: foLIC Acid 1 mg Route: IVPB; Site: right forearm; ap3 19:38 Follow up: Response: No adverse reaction; IV Status: Completed infusion; IV Intake: ll3 0.2ml 18:54 Drug: NS 0.9% 500 ml Route: IV; Rate: bolus; Site: left forearm; ap3 19:37 Follow up: Response: No adverse reaction; IV Status: Completed infusion; IV Intake: ll3 500ml 19:37 Drug: NS 0.9% 1000 ml Route: IV; Rate: 100 ml/hr; Site: right forearm; ll3 Disposition: 04/27 10:40 Co-signature as Attending Physician, Ike Aguilar MD I agree with the assessment and carmen plan of care. Disposition Summary: 04/26/21 19:26 Hospitalization Ordered Hospitalization Status: Observation pm1 Provider: Denilson Segovia pm1 Location: Telemetry/MedSurg (observation) pm1 Condition: Stable pm1 Problem: new pm1 Symptoms: have improved pm1 Bed/Room Type: Standard pm1 Room Assignment: 410(04/26/21 19:56) mw Diagnosis - Weakness pm1 - Pneumonia due to SARS-associated coronavirus pm1 Forms: - Medication Reconciliation Form pm1 - SBAR form pm1 Signatures: Dispatcher [employer] EDViviana Jain RN RN mw Anderson, Corey, MD MD cha Marinas, Patrick, TECHNOLOGY MANAGER TECHNOLOGY MANAGER pm1 Hattie Teonrio RN RN ap3 Ruthy Madsen RN RN 1 Susanne Austin RN RN ll3 Corrections: (The following items were deleted from the chart) 04/26 14:53 14:47 PMHx: None; vg1 vg1 19:56 19:26 pm1 mw
--- NOTE | 2021-04-26 19:27 | ER ---
Nurse's Notes [facility] Name: Hawk Penny Age: 65 yrs Sex: Male : 1955 Arrival Date: 04/26/2021 Time: 14:15 Bed 14 Private MD: Diagnosis: Weakness;Pneumonia due to SARS-associated coronavirus Presentation: 04/26 14:44 Chief complaint: Patient states: "I woke up this morning and I just dont feel the same; vg1 Im feeling disoriented; I noticed that my functions and what my mind wants to do I cant do it; my body wont follow my mind". Coronavirus screen: Vaccine status: Patient reports being unvaccinated. Client denies travel out of the [place] in the last 14 days. Ebola Screen: Patient negative for fever greater than or equal to 101.5 degrees Fahrenheit, and additional compatible Ebola Virus Disease symptoms. Initial Sepsis Screen: Does the patient meet any 2 criteria? No. Patient's initial sepsis screen is negative. Does the patient have a suspected source of infection? No. Patient's initial sepsis screen is negative. Risk Assessment: Do you want to hurt yourself or someone else? Patient reports no desire to harm self or others. Onset of symptoms was April 26, 2021. 14:44 Method Of Arrival: Wheelchair vg1 14:44 Acuity: KIP 3 vg1 Triage Assessment: 14:47 General: Appears uncomfortable, Behavior is calm, cooperative. Pain: Denies pain. vg1 Neuro: Level of Consciousness is awake, alert, obeys commands, Oriented to person, place, time, situation, Radiologic Technologist Mammogram are equal bilaterally Moves all extremities. Gait is unsteady, Speech is normal, Facial symmetry appears normal. Historical: - Allergies: 14:47 No Known Allergies; vg1 - Home Meds: 14:47 None [Active]; vg1 - PMHx: 14:52 Myocardial infarction; vg1 - PSHx: 14:47 None; vg1 - Immunization history:: Client reports having NOT received the Covid vaccine. - Social history:: Smoking status: Patient denies any tobacco usage or history of. Screenin:37 Abuse screen: Denies threats or abuse. Nutritional screening: No deficits noted. ap3 Tuberculosis screening: No symptoms or risk factors identified. Fall Risk None identified. Assessment: 16:36 General: Appears in no apparent distress. comfortable, Behavior is calm, cooperative, ap3 appropriate for age. Pain: Denies pain. Neuro: Level of Consciousness is awake, alert, obeys commands, Oriented to person, place, time, situation, Appropriate for age Gait is uses cane. Reports weakness in right leg. Respiratory: Airway is patent Respiratory effort is even, unlabored. Vital Signs: 14:44 BP 132 / 95; Pulse 109; Resp 16; Temp 99.0; Pulse Ox 95% ; Weight 77.11 kg; Height 5 vg1 ft. 7 in. (170.18 cm); Pain 0/10; 16:36 Pulse 108; Resp 19; Pulse Ox 98% on R/A; ap3 18:14 BP 114 / 94; Pulse 90; Pulse Ox 100% on R/A; ap3 14:44 Body Mass Index 26.63 (77.11 kg, 170.18 cm) vg1 ED Course: 14:15 Patient arrived in ED. ds1 14:47 Triage completed. vg1 14:47 Arm band placed on. vg1 15:19 Patient placed in an exam room, on a stretcher. vg1 15:33 Kyle Guan, DOCUMENT COORDINATOR is PHCP. pm1 15:33 Ike Aguilar MD is Attending Physician. pm1 15:42 Hattie Tenorio, VON is Primary Nurse. ap3 15:58 CT Head Brain wo Cont In Process Unspecified. EDMS 16:00 COVID-19/FLU A+B (Document "Date of Onset" if Symptomatic) Sent. mh5 16:37 Patient has correct armband on for positive identification. Placed in gown. Bed in low ap3 position. Call light in reach. Side rails up X2. Adult w/ patient. ekg monitor on. Pulse ox on. NIBP on. 16:42 XRAY Chest (1 view) In Process Unspecified. EDMS 17:09 Basic Metabolic Panel Sent. 5 17:09 CBC with Diff Sent. 5 17:09 LFT's Sent. 5 17:09 COVID-19/FLU A+B (Document "Date of Onset" if Symptomatic) Sent. 5 17:09 Magnesium Sent. 5 17:09 NT PRO-BNP Sent. 5 17:09 PT-INR Sent. [facility] 17:09 Troponin HS Sent. 5 17:09 Initial lab(s) drawn, by ms, sent to lab. Urine collected: clean catch specimen, [facility] pooja, EKG done, by ED staff, reviewed by Ike MULLEN swab sent to lab. Inserted saline lock: 20 gauge in left forearm, using aseptic technique. Blood collected. 17:40 CT Head Angio In Process Unspecified. EDMS 17:40 CT Neck Angio In Process Unspecified. EDMS 19:25 Denilson Segovia PA is Hospitalizing Provider. pm1 Administered Medications: 18:13 Drug: Aspirin 325 mg Route: PO; ap3 18:54 Follow up: Response: No adverse reaction ap3 18:54 Drug: foLIC Acid 1 mg Route: IVPB; Site: right forearm; ap3 19:38 Follow up: Response: No adverse reaction; IV Status: Completed infusion; IV Intake: ll3 0.2ml 18:54 Drug: NS 0.9% 500 ml Route: IV; Rate: bolus; Site: left forearm; ap3 19:37 Follow up: Response: No adverse reaction; IV Status: Completed infusion; IV Intake: ll3 500ml 19:37 Drug: NS 0.9% 1000 ml Route: IV; Rate: 100 ml/hr; Site: right forearm; ll3 Intake: 19:37 IV: 500ml; Total: 500ml. ll3 19:38 IV: 0ml; Total: 500ml. ll3 Outcome: 19:26 Decision to Hospitalize by Provider. pm1 21:31 Patient left the ED. bb Signatures: Dispatcher [employer] [facility] StephensRosmery james 1 Hina Donovan RN RN bb Kyle Guan, DOCUMENT COORDINATOR DOCUMENT COORDINATOR pm1 Beata Jennings Hattie Flowers RN RN ap3 Ruthy Madsen, RN RN vg1 Susanne Austin RN RN ll3 Corrections: (The following items were deleted from the chart) 14:53 14:47 PMHx: None; vg1 vg1
--- NOTE | 2021-04-26 20:52 | P.HP ---
Certification for Inpatient Patient admitted to: Observation With expected LOS: <2 Midnights Patient will require the following post-hospital care: None Practitioner: I am a practitioner with admitting privileges, knowledge of patient current condition, hospital course, and medical plan of care. Services: Services provided to patient in accordance with Admission requirements found in Title 42 Section 412.3 of the Code of Federal Regulations Patient History Date of Service: 04/26/21 Primary Care Provider: no PCP Reason for admission: weakness History of Present Illness: Mr. Penny is a 65 yo M with history of NC who presents with one day of weakness. He woke up this morning and said he could not get around like he normally does. He describes weakness in his right thigh. Denies falls, confusion, numbness, tingling, fever, N/V/D. Son says he had an episode of confusion in 2019 for 2-3 days, and an MD friend of the family treated him for a yeast infection and the symptoms resolved. Patient found to be COVID+. CT Head and CTA Head and Neck showed no acute findings. Allergies No Known Allergies Allergy (Unverified 08/15/17 05:50) - Past Medical/Surgical History -: STEMI 2018 -: cardiac stent - Family History Family History: Reviewed- Non-Contributory - Social History Smoking Status: Never smoker Alcohol use: No CD- Drugs: No Caffeine use: Yes Place of Residence: Home Review of Systems 10-point ROS is otherwise unremarkable General: Weakness Eyes: Unremarkable ENT: Unremarkable Respiratory: Unremarkable Cardiovascular: Unremarkable Gastrointestinal: Unremarkable Genitourinary: Unremarkable Musculoskeletal: Unremarkable Integumentary: Unremarkable Neurological: Weakness Lymphatics: Unremarkable Physical Examination - Physical Exam General: Alert, In no apparent distress HEENT: Atraumatic, PERRLA, Mucous membr. moist/pink, EOMI, Sclerae nonicteric Neck: Supple, 2+ carotid pulse no bruit, No LAD, Without JVD or thyroid abnormality Respiratory: Clear to auscultation bilaterally, Normal air movement Cardiovascular: Regular rate/rhythm, Normal S1 S2 Gastrointestinal: Normal bowel sounds, No tenderness Musculoskeletal: No tenderness Integumentary: No rashes Neurological: Normal speech, Normal strength at 5/5 x4 extr, Normal tone, Sensation intact, Normal affect Lymphatics: No axilla or inguinal lymphadenopathy - Studies Laboratory Data (last 24 hrs) 04/26/21 17:00: PT 13.7 H, INR 1.19 04/26/21 17:00: WBC 6.10, Hgb 12.4 L, Hct 37.4 L, Plt Count 203 04/26/21 17:00: Sodium 138, Potassium 4.1, BUN 11, Creatinine 1.06, Glucose 161 H, Magnesium 2.1, Total Bilirubin 0.5, AST 13 L, ALT 21, Alkaline Phosphatase 105 Assessment and Plan - Problems (Diagnosis) (1) Weakness Current Visit: Yes Status: Acute (2) COVID Current Visit: Yes Status: Acute (3) CAD (coronary artery disease) Current Visit: Yes Status: Chronic Qualifiers: Coronary Disease-Associated Artery/Lesion type: [place] artery [place] vs. transplanted heart: [place] heart Associated angina: without angina Qualified Code(s): I25.10 - Atherosclerotic heart disease of [place] coronary artery without angina pectoris - Plan MRI stroke protocol scheduled for the AM daily aspirin, folic acid, statin lipid panel pending crp, ferritin, procal pending continue IV fluids sliding scale insulin and accuchecks UA pending DVT ppx Discharge Plan: Home Plan to discharge in: 24 Hours - Advance Directives Does patient have a Living Will: No Does patient have a Durable POA for Healthcare: No - Code Status/Comfort Care Code Status Assessed: Yes (full code ) Critical Care: No Time Spent Managing Pts Care (In Minutes): 70
[2021-04-26] MEDS ORDERED: ATORVASTATIN 40 MG TAB PO SCH (21:17)
[2021-04-26] MEDS: INSULIN -REGULAR HUMAN 50 UNIT/0.5 ML ML SQ SCH ×2 (21:17→22:54)
[2021-04-26] MEDS ORDERED: ACETAMINOPHEN 500 MG TAB PO PRN (21:17)
[2021-04-26] MEDS ORDERED: ONDANSETRON 4 MG/2 ML VIAL IV PRN (21:17)
[2021-04-26] MEDS ORDERED: NA CHLORIDE 0.9% 1,000 ML IV SCH (21:17)
[2021-04-26 22:33] LABS: C-Reactive Protein 24.4 mg/L (<3.00); Ferritin 575.4 ng/mL (26-388)
[2021-04-26 22:38] VITALS: BMI 26.6
[2021-04-27 04:03] LABS: Absolute Lymphocytes (CBC) 1.6 K/uL (0.7-4.9); Hematocrit 35.7 % (39.6-49.0); Lymphocytes % 23.9 % (15.3-44.8); MPV 8.5 fL (7.6-11.3); RBC Red Blood Cell Count 3.89 M/uL (4.33-5.43)
[2021-04-27 04:31] LABS: Albumin 2.4 g/dL (3.4-5.0); Bilirubin Total 0.6 mg/dL (0.2-1.0); Magnesium 1.9 mg/dL (1.8-2.4); Phosphorus 2.3 mg/dL (2.5-4.9); Potassium 3.9 mmol/L (3.5-5.1); Protein, Total 7.3 g/dL (6.4-8.2); Thyroid Stimulating Hormone 2.05 uIU/mL (0.360-3.740)
[2021-04-27] MEDS: INSULIN -REGULAR HUMAN 50 UNIT/0.5 ML ML SQ SCH ×2 (07:30→11:30)
[2021-04-27] MEDS: POTASS/SODIUM PHOSPHATE 1 PKT POWD.PACK PO SCH ×3 (08:45→10:56)
[2021-04-27] MEDS ORDERED: FOLIC ACID 1 MG TABLET PO SCH (09:00)
[2021-04-27] MEDS ORDERED: ASPIRIN EC 81 MG TAB PO SCH (09:00)
[2021-04-27] MEDS ORDERED: ENOXAPARIN 40 MG/0.4 ML SQ SCH (09:00)
[2021-04-27 10:20] VITALS: O2SAT 92
[2021-04-27 15:24] VITALS: BP 138/92; TEMP 98.2
--- NOTE | 2021-04-27 15:29 | RAD REPORT ---
EXAM DESCRIPTION: MRI - Brain W/Wo Cont - 04/27/2021 3:01 pm CLINICAL HISTORY: weakness COMPARISON: Head angio dated 04/26/2021; Head Brain Wo Cont dated 04/26/2021 TECHNIQUE: Sagittal T1-weighted images were obtained along with PD/heavily T2-weighted and T2-FLAIR images. Axial DWI and ADC mapping sequences were also obtained along with coronal heavily T2-weighted images were obtained. Contrast was administered. FINDINGS: Diffusion restriction in the left body and tail of the caudate is present. This is consist ent with an acute infarct. Other small T2/FLAIR hyperintense foci are noted which demonstrate T2 macias e through. No other acute infarcts are identified. No acute intracranial hemorrhage. No mass effect o r midline shift. No hydrocephalus. Flow voids are grossly unremarkable. Orbits are intact. Mastoid air cells and paranasal sinuses are clear. 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
--- NOTE | 2021-04-27 15:31 | RAD REPORT ---
EXAM DESCRIPTION: MRI - MRA Head Wo Cont - 04/27/2021 2:58 pm CLINICAL HISTORY: weakness CVA COMPARISON: Brain W/Wo Cont dated 04/27/2021; Head angio dated 04/26/2021 FINDINGS: 3D noncontrast [id number] MR angiography of the [place] was performed. No aneurysm, flow-limiting stenosis or vascular malformation is seen. Forward flow seen in codominant vertebral arteries. The visualized dural venous sinuses appear patent. IMPRESSION: No significant flow abnormality of the [place] is identified.
--- NOTE | 2021-04-27 15:34 | RAD REPORT ---
EXAM DESCRIPTION: MRI - MRA Neck W/Wo Cont - 04/27/2021 3:01 pm CLINICAL HISTORY: weakness COMPARISON: Neck Angio dated 04/26/2021 FINDINGS: Contrast enhance 2D [id number] MR angiography of the neck vessels was performed. Both carotid systems are widely patent. The vertebral arteries are widely patent. IMPRESSION: Unremarkable MRA of the neck.
--- NOTE | 2021-04-27 17:01 | P.DS ---
Admission Date: 04/26/21 Discharge Date: 04/27/21 Primary Care Provider: no PCP Reason for Admission: weakness Hospital Course: Patient is a 65-year-old male who presented with right-sided weakness, distal disorientation and lack of coordination. MRI brain revealed an acute left caudate infarction. I have asked the patient to stay for additional stroke work-up which most likely include an echocardiogram and a neurology consult. Unfortunately, he refused and he wanted to leave [facility]. Vital Signs/Physical Exam: Temp Pulse Resp BP Pulse Ox 98.2 F 94 H 20 138/92 H 96 04/27/21 12:00 04/27/21 12:00 04/27/21 12:00 04/27/21 12:00 04/27/21 12:00 Laboratory Data at Discharge: WBC 6.80 K/uL (4.3-10.9) 04/27/21 03:27 Hgb 11.9 g/dL (13.6-17.9) L 04/27/21 03:27 Hct 35.7 % (39.6-49.0) L 04/27/21 03:27 Plt Count 190 K/uL (152-406) 04/27/21 03:27 PT 13.7 SECONDS (9.5-12.5) H 04/26/21 17:00 INR 1.19 04/26/21 17:00 Sodium 137 mmol/L (136-145) 04/27/21 03:27 Potassium 3.9 mmol/L (3.5-5.1) 04/27/21 03:27 BUN 9 mg/dL (7-18) 04/27/21 03:27 Creatinine 1.05 mg/dL (0.55-1.3) 04/27/21 03:27 Glucose 138 mg/dL (74-106) H 04/27/21 03:27 Phosphorus 2.3 mg/dL (2.5-4.9) L 04/27/21 03:27 Magnesium 1.9 mg/dL (1.8-2.4) 04/27/21 03:27 Total Bilirubin 0.6 mg/dL (0.2-1.0) 04/27/21 03:27 AST 13 U/L (15-37) L 04/27/21 03:27 ALT 17 U/L (12-78) 04/27/21 03:27 Alkaline Phosphatase 91 U/L (45-117) 04/27/21 03:27 Triglycerides 127 mg/dL (<150) 04/27/21 03:27 Cholesterol 126 mg/dL (<200) 04/27/21 03:27 HDL Cholesterol 33 mg/dL (40-60) L 04/27/21 03:27 Cholesterol/HDL Ratio 3.82 04/27/21 03:27 Followup: NONE,NONE [Primary Care Provider] -
== END 2021-04-27 16:40 | disposition left against medical advice (07) ==
LOC: ER 14:12 → ERHOLD 19:58 → 4TH 20:57
PROVIDERS: ADMIT Internal Medicine; ATTEND Internal Medicine
DX: I63.89 Other cerebral infarction (principal); U07.1 COVID-19; Z53.29 Procedure and treatment not carried out because of patient's decision for other reasons; I25.2 Old myocardial infarction; I25.10 Atherosclerotic heart disease of native coronary artery without angina pectoris; Z95.5 Presence of coronary angioplasty implant and graft
CPT/HCPCS: 0240U; 36415; 70450; 70496; 70498; 70544; 70549; 70553; 71045; 80048; 80053; 80061; 80076; 81003; 81015; 82565; 82728; 82947; 83735; 83880; 84100; 84145; 84439; 84443; 84484; 85025; 85610; 86140; 93005; 94760; 97161; A9577; G0378; J1650; J7030; Q9967